=== PATIENT | female | born 1975 | race Caucasian/White ===

== ENCOUNTER → 2019-10-19 | Day surgery (SDC) | payer OTHER ==
[~2019-10-19] VITALS: Ht 180.3 cm; Wt 62.6 kg
[~2019-10-19] MED LIST: IOHEXOL-350 100 ML VIAL IV ONE; IV NS 0.9% 250 ML IV ONE; IV NS 0.9% 500 ML IV PRN; METOPROLOL TARTRATE INJ 5 MG/5 ML AMPUL IVP PRN; NITROGLYCERIN 0.4 MG/TAB BOTTLE SL ONE; NITROGLYCERIN 0.4 MG/TAB BOTTLE SL PRN
== END | disposition home or self-care (01) ==
LOC: CT 13:15
PROVIDERS: ATTEND Internal Medicine Interventional Cardiology
DX: I34.1 Nonrheumatic mitral (valve) prolapse (principal)
CPT/HCPCS: 75574; J7050; Q9967